=== PATIENT | male | born 1945 | race Caucasian/White ===

== ENCOUNTER 2016-09-27 21:25 | Emergency (ER) | payer OTHER ==
[~2016-09-27] VITALS: Ht 170.1 cm; Wt 94.3 kg
[~2016-09-27 21:25] MED LIST: ACYCLOVIR800 MG PO; BENADRYL25 M1 PO; BORON3 MG; CALCIUM CITRAT250 MG PO; CALCIUM200 MG; CIPRO500 MG PO; FLOMAX0.4 MG PO; GARLIC1 TAB; HAWTHORN PO; HYDROCODONE BIT1 T11 PO; KEFLEX500 MG PO; LISINOPRIL10 MG PO; MAGNESIUM500 MG; MULTIVITAMIN1 CTB PO; NATTOKINASE; NIACIN50 MG; PALMITATE-A5000 IU; PERCOCET 650 MG1 TA1 PO; POLICOSANOL10 MG PO; PRILOSEC OTC20 MG PO; Percocet 325 MG1 TAB PO; SAW PALMETTO6 X; SELENIUM; STRONTIUM; VICODIN 5/500 505 MG PO; VITAMIN B COMPL1 CAP PO; VITAMIN B610 MG PO; VITAMIN C1000 M2 PO; VITAMIN D2000 IU; [UNRECOGNIZED DRUG - OTHER]; [UNRECOGNIZED DRUG - OTHER] PO
[2016-09-27 21:42] VITALS: BP 187/151
[2016-09-27] MEDS ORDERED: CYCLOBENZAPRINE5 M3 PO (21:45)
== END 2016-09-28 00:08 | disposition home or self-care (01) ==
LOC: ED 21:25
DX: S16.1XXA Strain of muscle, fascia and tendon at neck level, initial encounter (principal); F17.200 Nicotine dependence, unspecified, uncomplicated; Z95.5 Presence of coronary angioplasty implant and graft; Z90.49 Acquired absence of other specified parts of digestive tract; I10 Essential (primary) hypertension; Z87.442 Personal history of urinary calculi; Z86.73 Personal history of transient ischemic attack (TIA), and cerebral infarction without residual deficits; Z88.6 Allergy status to analgesic agent; Z79.899 Other long term (current) drug therapy; W22.8XXA Striking against or struck by other objects, initial encounter; Y93.89 Activity, other specified; Y92.9 Unspecified place or not applicable; Y99.9 Unspecified external cause status

== ENCOUNTER 2016-10-28 15:29 | Inpatient (IN) | payer OTHER ==
[~2016-10-28] VITALS: Ht 170.2 cm; Wt 94.1 kg
[2016-10-28] VITALS (13 sets, daily range): BP systolic 139–220; BP diastolic 79–149
--- NOTE | ~2016-10-28 | ST ---
[place], [place] EXERCISE STRESS TEST REPORT NAME: CRISTOBAL RICHARDS UNIT #: [id number] ROOM: [facility] DOCTOR: JUS THRASHER,MARY BIRTHDATE: [birth year] DOS: 10/30/2016 REFERRING PHYSICIAN: Dr. Izaguirre. INDICATION: Elevated troponin. The patient underwent standard Richard protocol Lexiscan stress EKG. The patient's baseline EKG showed normal sinus rhythm with nonspecific ST-T wave changes. The patient's baseline heart rate is 82 with a blood pressure 144/80. The patient's peak heart was 100 with a blood pressure 158/84. The patient had no chest pain, no ischemic changes. The patient had no arrhythmias, some PVCs. SUMMARY OF FINDINGS: Unremarkable Lexiscan stress EKG. Please see separate report for perfusion scan results. MARY LUU MD CM:STRESS:EXERCISE STRESS TEST REPORT [id number] MARY LUU MD
[~2016-10-28 15:29] MED LIST changes: +CYCLOBENZAPRINE5 M3 PO
[2016-10-28 16:28] LABS: BASO # 0.1 10*3/uL (0.0-0.1); BASO % 0.8 % (0.0-1.0); EOS # 0.1 10*3/uL (0.0-0.4); EOS % 1.2 % (1.0-4.0); HEMATOCRIT 45.2 % (42.0-52.0); HEMOGLOBIN 15.8 g/dl (14.0-18.0); LYMPH # 1.4 10*3/uL (1.3-4.4); LYMPH % 21.9 % (27.0-41.0); MEAN CELL VOLUME 88.5 fl (80.0-94.0); MEAN CORPUSCULAR HGB 30.9 pg (27.0-31.0); MEAN PLATELET VOLUME 9.9 fl (9.6-12.3); MONO # 0.6 10*3/uL (0.1-1.0); MONO % 9.4 % (3.0-9.0); NEUT # 4.3 10*3/uL (2.3-7.9); NEUT % 66.2 % (47.0-73.0); PLATELET COUNT AUTOMATED 160 10*3/uL (130-400); RED BLOOD COUNT 5.11 10*6/uL (4.50-5.90); RED CELL DISTRI WIDTH 13.6 % (0-14.5); WHITE BLOOD COUNT 6.5 10*3/uL (4.8-10.8)
[2016-10-28 16:45] LABS: ALBUMIN 3.5 gm/dl (3.1-4.5); ALKALINE PHOSPHATASE 79 U/L (45-117); BILIRUBIN, TOTAL 0.6 mg/dl (0.2-1.0); BUN 13 mg/dl (7-24); CARBON DIOXIDE 30 mmol/L (21-32); CHLORIDE 104 mmol/L (98-107); EST GLOM FILT AFRICAN AMERICAN > 60 ml/min; GLUCOSE 91 mg/dL (65-99); POTASSIUM 3.8 mmol/L (3.5-5.1); SGOT/AST 22 IU/L (3-35); SGPT/ALT 38 U/L (12-78); SODIUM 142 mmol/L (136-145)
[2016-10-28 18:00] LABS: BILIRUBIN NEGATIVE (NEGATIVE); BLOOD TRACE-INTACT (NEGATIVE); CLARITY CLEAR (CLEAR); COLOR YELLOW (YELLOW); GLUCOSE NEGATIVE (NEGATIVE); KETONE NEGATIVE (NEGATIVE); LEUKO ESTERASE NEGATIVE (NEGATIVE); NITRITE NEGATIVE (NEGATIVE); PH 6.5 (5.0-9.0); PROTEIN NEGATIVE (NEGATIVE); SPECIFIC GRAVITY <= 1.005 (1.005-1.030); UROBILINOGEN 0.2 E.U./dl (0.2-1.0)
[2016-10-28 18:06] LABS: BACTERIA 4+; URINE REFLEX COMMENT YES (NO); WBC 0-2 wbc/hpf (0-5)
[2016-10-29] VITALS: BP 109/70
[2016-10-29 04:00] VITALS: BP 146/83
[2016-10-29 04:47] LABS: BASO # 0.1 10*3/uL (0.0-0.1); BASO % 0.6 % (0.0-1.0); EOS # 0.1 10*3/uL (0.0-0.4); EOS % 1.1 % (1.0-4.0); HEMATOCRIT 41.8 % (42.0-52.0); HEMOGLOBIN 14.7 g/dl (14.0-18.0); LYMPH # 1.5 10*3/uL (1.3-4.4); LYMPH % 18.4 % (27.0-41.0); MEAN CELL VOLUME 87.6 fl (80.0-94.0); MEAN CORPUSCULAR HGB 30.8 pg (27.0-31.0); MEAN CORPUSCULAR HGB CONC 35.2 g/dl (33.0-37.0); MEAN PLATELET VOLUME 10.2 fl (9.6-12.3); MONO # 0.8 10*3/uL (0.1-1.0); MONO % 9.2 % (3.0-9.0); NEUT # 5.9 10*3/uL (2.3-7.9); NEUT % 70.5 % (47.0-73.0); PLATELET COUNT AUTOMATED 148 10*3/uL (130-400); RED BLOOD COUNT 4.77 10*6/uL (4.50-5.90); RED CELL DISTRI WIDTH 13.9 % (0-14.5); WHITE BLOOD COUNT 8.4 10*3/uL (4.8-10.8)
[2016-10-29 04:59] LABS: PROTHROMBIN TIME 10.6 SECONDS (9.0-12.4)
[2016-10-29 05:01] LABS: BUN 12 mg/dl (7-24); CARBON DIOXIDE 26 mmol/L (21-32); CHLORIDE 106 mmol/L (98-107); EST GLOM FILT AFRICAN AMERICAN > 60 ml/min; GLUCOSE 97 mg/dL (65-99); POTASSIUM 3.2 mmol/L (3.5-5.1); SODIUM 142 mmol/L (136-145)
[2016-10-29 05:06] LABS: CHOLESTEROL 176 mg/dL (<200); FREE T4 1.13 ng/dl (0.76-1.46); HDL CHOLESTEROL 41 mg/dl (40-60); LDL CHOLESTEROL 114 mg/dL (9-159); TRIGLYCERIDES 104 mg/dl (<150); VLDL CHOLESTEROL 21 mg/dL (6-40)
[2016-10-29 05:47] LABS: MAGNESIUM 2.3 mg/dL (1.5-2.1); PHOSPHOROUS 3.9 mg/dL (2.5-4.9)
[2016-10-29 06:46] LABS: FOLIC ACID 12.59 ng/mL (>5.38); VITAMIN D, 25-HYDROXY 44.6 ng/mL (30-100)
[2016-10-29 08:00] VITALS: BP 144/97
[2016-10-29 12:00] VITALS: BP 158/110
[2016-10-29 16:00] VITALS: BP 164/94
[2016-10-29 20:05] VITALS: BP 166/93
[2016-10-30] VITALS: BP 125/62
[2016-10-30 04:00] VITALS: BP 139/88
[2016-10-30 05:58] LABS: BASO # 0.1 10*3/uL (0.0-0.1); BASO % 0.8 % (0.0-1.0); EOS # 0.1 10*3/uL (0.0-0.4); EOS % 1.1 % (1.0-4.0); HEMATOCRIT 41.6 % (42.0-52.0); HEMOGLOBIN 14.3 g/dl (14.0-18.0); LYMPH # 1.8 10*3/uL (1.3-4.4); LYMPH % 19.9 % (27.0-41.0); MEAN CELL VOLUME 89.8 fl (80.0-94.0); MEAN CORPUSCULAR HGB 30.9 pg (27.0-31.0); MEAN CORPUSCULAR HGB CONC 34.4 g/dl (33.0-37.0); MEAN PLATELET VOLUME 10.9 fl (9.6-12.3); MONO # 0.9 10*3/uL (0.1-1.0); MONO % 9.7 % (3.0-9.0); PLATELET COUNT AUTOMATED 158 10*3/uL (130-400); RED BLOOD COUNT 4.63 10*6/uL (4.50-5.90); WHITE BLOOD COUNT 8.9 10*3/uL (4.8-10.8)
[2016-10-30 06:32] LABS: BUN 15 mg/dl (7-24); CARBON DIOXIDE 26 mmol/L (21-32); CHLORIDE 104 mmol/L (98-107); EST GLOM FILT AFRICAN AMERICAN > 60 ml/min; GLUCOSE 89 mg/dL (65-99); POTASSIUM 3.7 mmol/L (3.5-5.1); SODIUM 138 mmol/L (136-145)
[2016-10-30 08:00] VITALS: BP 139/94
[2016-10-30 12:00] VITALS: BP 144/116
[2016-10-30] MEDS ORDERED: IMDUR SA30 MG PO (14:36)
[2016-10-30] MEDS ORDERED: ASPIRIN ADULT L81 M2 PO (14:36)
[2016-10-30] MEDS ORDERED: TOPROL XL50 M1 PO (14:36)
[2016-10-30] MEDS ORDERED: ATORVASTATIN CA20 M1 PO (14:36)
[2016-10-30] MEDS ORDERED: LOSARTAN POTAS100 M1 PO (14:36)
[2016-10-30 16:00] VITALS: BP 156/104
== END 2016-10-30 16:52 | disposition home or self-care (01) | DRG 304 ==
LOC: ED 15:29 → EDHOLD 17:34 → ICCU 17:34
PROVIDERS: Emergency Medicine; Family Medicine; Internal Medicine; Internal Medicine Hospice and Palliative Medicine
PROC: 4A02XM4 Measurement of Cardiac Total Activity, External Approach (ICD-10-PCS; principal; 2016-10-30)
DX: I16.1 Hypertensive emergency (principal); G93.41 Metabolic encephalopathy; I50.32 Chronic diastolic (congestive) heart failure; I24.8 Other forms of acute ischemic heart disease; I69.351 Hemiplegia and hemiparesis following cerebral infarction affecting right dominant side; I69.328 Other speech and language deficits following cerebral infarction; E87.6 Hypokalemia; K59.00 Constipation, unspecified; N39.3 Stress incontinence (female) (male); K21.9 Gastro-esophageal reflux disease without esophagitis; M81.0 Age-related osteoporosis without current pathological fracture; I16.0 Hypertensive urgency; F17.200 Nicotine dependence, unspecified, uncomplicated; I25.10 Atherosclerotic heart disease of native coronary artery without angina pectoris; Z88.8 Allergy status to other drugs, medicaments and biological substances; Z88.5 Allergy status to narcotic agent; I25.2 Old myocardial infarction; Z87.442 Personal history of urinary calculi; Z90.49 Acquired absence of other specified parts of digestive tract; Z95.5 Presence of coronary angioplasty implant and graft; Z98.49 Cataract extraction status, unspecified eye; Z82.3 Family history of stroke; Z82.49 Family history of ischemic heart disease and other diseases of the circulatory system; I11.0 Hypertensive heart disease with heart failure

== ENCOUNTER 2019-11-06 05:07 | Emergency (ER) | payer OTHER ==
[~2019-11-06] VITALS: Ht 170.1 cm; Wt 87.1 kg
[~2019-11-06 05:07] MED LIST changes: +ASPIRIN ADULT L81 M2 PO; +ATORVASTATIN CA20 M1 PO; +IMDUR SA30 MG PO; +LOSARTAN POTAS100 M1 PO; +TOPROL XL50 M1 PO
[2019-11-06 05:32] LABS: COLOR YELLOW (YELLOW)
[2019-11-06 05:33] LABS: BILIRUBIN NEGATIVE (NEGATIVE); CLARITY SL CLOUDY (CLEAR); GLUCOSE NEGATIVE (NEGATIVE); KETONE NEGATIVE (NEGATIVE)
[2019-11-06 05:34] LABS: BLOOD 3+ (NEGATIVE); LEUKO ESTERASE 3+ (NEGATIVE); NITRITE POSITIVE (NEGATIVE); UROBILINOGEN 0.2 E.U./dl (0.2-1.0)
[2019-11-06 05:42] LABS: RBC 41-50 rbc/hpf (0-2); WBC TNTC wbc/hpf (0-5)
[2019-11-06 05:43] LABS: BACTERIA 4+
[2019-11-06 05:56] LABS: BASO % 0.3 % (0.0-1.0); EOS # 0.1 10*3/uL (0.0-0.4); EOS % 0.7 % (1.0-4.0); HEMATOCRIT 40.2 % (42.0-52.0); LYMPH # 0.4 10*3/uL (1.3-4.4); LYMPH % 3.3 % (27.0-41.0); MEAN CELL VOLUME 93.1 fl (80.0-94.0); MEAN CORPUSCULAR HGB 30.8 pg (27.0-31.0); MEAN CORPUSCULAR HGB CONC 33.1 g/dl (33.0-37.0); MEAN PLATELET VOLUME 10.8 fl (9.6-12.3); MONO # 0.6 10*3/uL (0.1-1.0); MONO % 5.2 % (3.0-9.0); NEUT # 9.4 10*3/uL (2.3-7.9); NEUT % 89.8 % (47.0-73.0); PLATELET COUNT AUTOMATED 229 10*3/uL (130-400); RED BLOOD COUNT 4.32 10*6/uL (4.50-5.90); RED CELL DISTRI WIDTH 13.9 % (0-14.5); WHITE BLOOD COUNT 10.5 10*3/uL (4.8-10.8)
[2019-11-06 05:59] LABS: ALBUMIN 2.9 gm/dl (3.1-4.5); ALKALINE PHOSPHATASE 119 U/L (45-117); BUN 28 mg/dl (7-24); CHLORIDE 109 mmol/L (98-107); CREATININE 1.28 mg/dL (0.70-1.30); POTASSIUM 3.8 mmol/L (3.5-5.1); SGOT/AST 27 IU/L (3-35); SGPT/ALT 51 U/L (12-78); SODIUM 139 mmol/L (136-145); TOTAL PROTEIN 7.3 gm/dL (6.4-8.2)
[2019-11-06 06:00] LABS: TROPONIN I < 0.015 ng/ml (<0.045)
[2019-11-06 06:15] LABS: ACT PARTIAL THROMBO TIME 25.3 SECONDS (20.0-32.1); INTERNATIONAL NORM RATIO 1.1 (2.0-3.5)
[2019-11-06] MEDS ORDERED: CIPRO500 MG PO (08:51)
[2019-11-06 09:25] VITALS: BP 121/80
== END 2019-11-06 09:00 | disposition home or self-care (01) ==
LOC: ED 05:07
PROVIDERS: Emergency Medicine Emergency Medical Services
DX: N39.0 Urinary tract infection, site not specified (principal)

== ENCOUNTER 2019-11-08 07:52 | Inpatient (IN) | payer OTHER ==
[~2019-11-08] VITALS: Ht 170.1 cm; Wt 87.1 kg
[2019-11-08 07:56] VITALS: BP 131/81
[2019-11-08 08:21] LABS: BASO % 0.4 % (0.0-1.0); EOS # 0.2 10*3/uL (0.0-0.4); EOS % 2.9 % (1.0-4.0); HEMATOCRIT 33.7 % (42.0-52.0); LYMPH % 12.1 % (27.0-41.0); MEAN CELL VOLUME 94.7 fl (80.0-94.0); MEAN CORPUSCULAR HGB 30.6 pg (27.0-31.0); MEAN CORPUSCULAR HGB CONC 32.3 g/dl (33.0-37.0); MEAN PLATELET VOLUME 10.4 fl (9.6-12.3); MONO # 0.9 10*3/uL (0.1-1.0); MONO % 10.6 % (3.0-9.0); NEUT # 5.9 10*3/uL (2.3-7.9); NEUT % 72.2 % (47.0-73.0); PLATELET COUNT AUTOMATED 168 10*3/uL (130-400); RED BLOOD COUNT 3.56 10*6/uL (4.50-5.90); RED CELL DISTRI WIDTH 14.2 % (0-14.5); WHITE BLOOD COUNT 8.2 10*3/uL (4.8-10.8)
[2019-11-08 08:36] LABS: ALBUMIN 2.3 gm/dl (3.1-4.5); ALKALINE PHOSPHATASE 96 U/L (45-117); BUN 22 mg/dl (7-24); CHLORIDE 108 mmol/L (98-107); CREATININE 1.06 mg/dL (0.70-1.30); LIPASE 273 U/L (73-393); POTASSIUM 3.6 mmol/L (3.5-5.1); SGOT/AST 15 IU/L (3-35); SGPT/ALT 34 U/L (12-78); SODIUM 139 mmol/L (136-145); TOTAL PROTEIN 6.1 gm/dL (6.4-8.2)
[2019-11-08 08:37] LABS: TROPONIN I < 0.015 ng/ml (<0.045)
[2019-11-08 08:40] LABS: BILIRUBIN NEGATIVE (NEGATIVE); CLARITY CLEAR (CLEAR); COLOR YELLOW (YELLOW); GLUCOSE NEGATIVE (NEGATIVE); KETONE NEGATIVE (NEGATIVE)
[2019-11-08 08:41] LABS: BLOOD 1+ (NEGATIVE); LEUKO ESTERASE TRACE (NEGATIVE); MUCOUS TRACE; NITRITE NEGATIVE (NEGATIVE); UROBILINOGEN 0.2 E.U./dl (0.2-1.0)
[2019-11-08 08:44] LABS: ACT PARTIAL THROMBO TIME 26.9 SECONDS (20.0-32.1); INTERNATIONAL NORM RATIO 1.1 (2.0-3.5)
[2019-11-08 09:07] VITALS: BP 118/82
[2019-11-08 10:27] VITALS: BP 142/88
--- NOTE | 2019-11-08 10:27 | NUR ---
VENUS PALMA IN TO SEE PATIENT
--- NOTE | 2019-11-08 10:27 | NUR ---
A 73, admitted to , under the services of CARLOS Beltrán DO with a diagnosis of UTI. Chief complaint is FATIGUE. Patient arrived via bed from ER. Monitor applied. Initial assessment completed. Vital signs taken and recorded. CARLOS BELTRÁN DO notified of admission to the unit. Orders received. See assessment for past medical history, medications and allergies. Patient and/or family oriented to unit. [facility]. Clothing/patient valuable form completed. SUDHIR HARRIS
--- NOTE | 2019-11-08 11:40 | NUR ---
CALLED [facility] FOR MED LIST, THEY WILL FAX OVER
--- NOTE | 2019-11-08 11:46 | NUR ---
PT ON THE PHONE GETTING UPDATE ON PATIENT
--- NOTE | 2019-11-08 11:49 | NUR ---
CALLED [facility] TO LET HER KNOW PT MED LIST IS UP TO DATE
[2019-11-08 12:00] VITALS: BP 137/78
--- NOTE | 2019-11-08 13:28 | NUR ---
SPOKE TO DANICA DUNBAR ON THE PHONE, SHE STATES ADD SPEECH CONSULT AND DIET THICKENED LIQUIDS
--- NOTE | 2019-11-08 14:43 | NUR ---
PT IS ANXIOUS AND YELLING "I WANT A TOOTHPICK, IF YOU DONT HAVE A TOOTHPICK I AM GOING TO LEAVE, NO ONE HERE MONITORS ME HERE I AM IN BETTER CARE AT HOME". CALLED [facility] AND SHE WILL PUT AN ORDER OF NYSTATIN IN PER PT REQUEST
--- NOTE | 2019-11-08 14:58 | NUR ---
PER [facility]. PATIENT IS ACTIVE WITH RNS/PT.
--- NOTE | 2019-11-08 15:13 | NUR ---
SET UP SUCTION FOR PATIENT SO HE CAN USE IT HE NEEDS. WILL CONTINUE TO MONITOR
--- NOTE | 2019-11-08 15:54 | NUR ---
IN TO CHECK ON PATIENT AT THIS TIME, HE IS MORE CALM AT THIS TIME AND IS RESTING. CALL LIGHT WITHIN PT, WILL CONTINUE TO MONITOR
[2019-11-08 16:00] VITALS: BP 140/80
--- NOTE | 2019-11-08 18:04 | NUR ---
PT INFORMED OF HONEY THICKENED LIQUIDS AND IS REFUSING THE ORDER, STATES "I CAN EAT AND DRINK WHATEVER I WANT, I DONT WANT IT THICKENED". PT MADE AWARE OF ALL POSSIBLE SIDE EFFECTS AND UP EDUCATED ON THICKNER. DOCTOR MADE AWARE OF PT REFUSING THICKENING ADDITIVE
--- NOTE | 2019-11-08 18:07 | NUR ---
DR ROYAL MADE AWARE OF PT REFUSING THICKENING AGENT
[2019-11-08 20:00] VITALS: BP 114/79
--- NOTE | 2019-11-08 21:34 | NUR ---
PT REFUSING TO TAKE EVENING MEDS OR ALLOW NYSTATIN TO BE APPLIED. PT STATES "YOU'RE TRYING TO DRIVE ME CRAZY, YOU'RE BLACK MAILING ME. I NEED OUT OF THIS HOSPITAL." RN ASSURED PATIENT THAT THERE WAS NO FORM OF BLACKMAIL GOING ON AND RN IS HERE TO HELP PATIENT. PT HOLDS UP FIST AT RN AND SAYS "OOOOH." RN ASKS PT KINDLY NOT TO THREATEN HER. PT STATES "OH BOY I WILL THREATEN YOU."
--- NOTE | 2019-11-08 21:52 | NUR ---
PT'S CALLED REGARDING NEW AGITATION. PT DEMANDING COME TO TAKE HIM HOME. PHONE CALL TRANSFERRED INTO PATIENT'S ROOM SO HE CAN TALK TO . CALLED REGARDING AGITATION AND PT'S REQUEST FOR PAIN MEDS. NEW ORDERS TO FOLLOW.
--- NOTE | 2019-11-08 22:22 | NUR ---
PT IS MUCH CALMER AFTER TALKING TO ON PHONE. PT NOW RECEPTIVE TO HEAR WHAT STAFF HAS TO SAY. PT ASSISTED UP TO BEDSIDE COMMODE WITH ASSIST X3. PATIENT IS A MAX ASSIST. PT'S STATES HE GETS HIMSELF IN AND OUT OF HIS WHEELCHAIR AT HOME, BUT NEEDS SOME ASSISTANCE. PATIENT IS VERY WEAK AT THIS TIME AND MOBILITY IS VERY LIMITED. PATIENT ASSISTED BACK INTO BED. PT UNABLE TO HAVE BM ON BSC. MARTINO REMAINS INTACT. IV ATIVAN AND IV MORPHINE ADMINISTERED PER ORDER FOR AGITATION & "LUNG PAIN" RATED 10/10. PATIENT ENCOURAGED TO COUGH/DEEP BREATHE AND EXPECTORATE ANY SPUTUM HE BRINGS UP. VERBALIZES UNDERSTANDING. WILL MONITOR. CALL LIGHT IN REACH. BED ALARM INTACT.
--- NOTE | 2019-11-08 23:15 | NUR ---
EARLIER MEDICATIONS APPEAR EFFECTIVE. PT ASLEEP IN BED. RESPIRATIONS EASY. NO S/S OF DISTRESS NOTED.
[2019-11-09] VITALS: BP 120/79
--- NOTE | 2019-11-09 00:13 | NUR ---
PT REMAINS ASLEEP IN BED. HOB ELEVATED. NO S/S OF DISTRESS NOTED. WILL MONITOR. SUCTION LEFT AT BEDSIDE PER PT'S EARLIER REQUEST. BED LOCKED IN LOW POSITION. BED ALARM INTACT. CALL LLIGHT IN REACH.
[2019-11-09 06:41] LABS: BASO # 0.1 10*3/uL (0.0-0.1); BASO % 0.9 % (0.0-1.0); EOS # 0.2 10*3/uL (0.0-0.4); EOS % 2.7 % (1.0-4.0); HEMATOCRIT 34.2 % (42.0-52.0); LYMPH # 1.2 10*3/uL (1.3-4.4); LYMPH % 20.6 % (27.0-41.0); MEAN CELL VOLUME 92.4 fl (80.0-94.0); MEAN CORPUSCULAR HGB 30.8 pg (27.0-31.0); MEAN CORPUSCULAR HGB CONC 33.3 g/dl (33.0-37.0); MEAN PLATELET VOLUME 11.4 fl (9.6-12.3); MONO # 0.6 10*3/uL (0.1-1.0); MONO % 10.3 % (3.0-9.0); NEUT # 3.7 10*3/uL (2.3-7.9); NEUT % 63.6 % (47.0-73.0); PLATELET COUNT AUTOMATED 194 10*3/uL (130-400); RED CELL DISTRI WIDTH 14.1 % (0-14.5); WHITE BLOOD COUNT 5.8 10*3/uL (4.8-10.8)
[2019-11-09 07:21] LABS: ALBUMIN 2.5 gm/dl (3.1-4.5); ALKALINE PHOSPHATASE 102 U/L (45-117); BUN 21 mg/dl (7-24); CHLORIDE 106 mmol/L (98-107); CHOLESTEROL 90 mg/dL (<200); CREATININE 1.23 mg/dL (0.70-1.30); FREE T4 1.45 ng/dl (0.76-1.46); HDL CHOLESTEROL 20 mg/dl (40-60); LDL CHOLESTEROL 53 mg/dL (9-159); SGOT/AST 18 IU/L (3-35); SGPT/ALT 32 U/L (12-78); SODIUM 140 mmol/L (136-145); TOTAL PROTEIN 6.4 gm/dL (6.4-8.2); TRIGLYCERIDES 84 mg/dl (<150); VLDL CHOLESTEROL 17 mg/dL (6-40)
[2019-11-09 08:00] VITALS: BP 98/75
--- NOTE | 2019-11-09 08:33 | NUR ---
SPEECH PATHOLOGY Orders for evaluation received and chart review completed. Assessment attempted this am. Patient was asleep but aroused when his name was called. He opened his eyes, looked at clinician, then went back to sleep. Will attempt again at a later time. LIANA MCGINNIS MSCCC-CIGARETTE PAPER TESTER
[2019-11-09 08:50] LABS: VITAMIN D, 25-HYDROXY 34.3 ng/mL (30-100)
--- NOTE | 2019-11-09 09:00 | NUR ---
Oral And Maxillofacial Surgeon in to talk to patient. Patient states lives at home with . There are no steps in the home. Physician: amador samuels [facility] Patient's level of ADLs: MAX ASSIST Patient has working utilities: all working DME: hospital bed, shower chair, wheelchair, walker, cane Follow-up physician's appointment after d/c: will be made by hospitalist nurse director upon discharg Does patient want to access PORTAL?: no Discharge plan discussed with patient's , she stated patient lives at home with her, he requires assistance with adls and stated he hasn't walked for a few months, he has a hospital bed, shower chair, wheelchair, walker and cane, discussed with her a discharge plan, she stated patient currently has [facility] set up by the [place]. she stated she would like patient to return home if he was able to. she stated if he needed a short term skilled she would think about a facility, case management will follow and talk with as needed for home needs. MOHINDER GO
--- NOTE | 2019-11-09 09:52 | NUR ---
PT SITTING UP IN BED EATING BREAKFAST. MOIST COUGH NOTED BUT PT STATES HE IS UNABLE TO COUGH ANYTHING UP. PT ANSWERS QUESTIONS APPROPRIATELY AND IS NONTHREATENING. WILL CONTINUE TO MONITOR.
--- NOTE | 2019-11-09 10:57 | NUR ---
VENUS PALMA NP INFORMED THAT THE PATIENT WOULD LIKE TO SEE HER.
--- NOTE | 2019-11-09 11:10 | NUR ---
Occupational Therapy evaluation completed on FIVE with full evaluation to follow. Recommend occupational therapy per plan of care and SNF upon discharge. Thank you for this referral. Svitlana Vargas OTR/L
--- NOTE | 2019-11-09 11:39 | NUR ---
SPEECH PATHOLOGY Clinical swallowing evaluation completed. Patient was admitted with UTI, urinary retention and pneumonitis. Further history includes CVA, dysphagia, triple bipass. Patient is from home. He is reportedly ordered thick liquids however admitted that he does not comply with drinking thick liquids at home due to dislike of the taste. Patient stated that he does cough with thin liquids. He also reported having "lots of phlegm." He is ordered a cardiac diet and honey thick liquids. For assessment he was alert and cooperative. Oral exam revealed impaired strength and ROM with lingual/labial and buccal skills. Patient was able to volitionally swallow but unable to volitionally cough. He was assessed with a variety of solid foods as well as liquids at thin, nectar and honey consistencies. Patient expressed dislike of thick liquids but was agreeable to clinician thickening the liquid after explanation as to reasoning for thickening. Patient was assisted with set up and some feeding but eventually began to feed himself. He tolerated food items with a timely swallow and no cough, wet vocal quality or residue. With thin and nectar thick liquids, coughing and throat clearing were displayed. Honey thick liquids were administered with no immediate cough or throat clearing however congestion was displayed throughout the meal. Recommend a MBS to further assess the pharyngeal phase of the swallow and determine most appropriate diet consistency. Results and fady. were shared with patient and his nurse and they verbalized understanding. Refer to report in [place] for further information. Thank you for this referral. LIANA MCGINNIS MSCCC-ODD JOBS DAY WORKER
--- NOTE | 2019-11-09 11:58 | NUR ---
case management contacted [facility] regarding patient admitting to this facility, spoke to Leny from transfer center, she documented patient's information and asked that clinicals be faxed, clinicals were faxed per case management
[2019-11-09 12:00] VITALS: BP 119/95
--- NOTE | 2019-11-09 13:10 | NUR ---
PHYSICAL THERAPY Physical Therapy evaluation completed on 5th floor with full evaluation to follow. Recommend physical therapy per plan of care and SNF upon discharge. Thank you for this referral. Shruthi Marion PT
--- NOTE | 2019-11-09 13:54 | NUR ---
case management faxed patient's information to [facility] to resume services when patient is discharged
--- NOTE | 2019-11-09 14:50 | NUR ---
PT MEDICATED WITH PRN MORPHINE FOR C/O BACK AND "LUNG PAIN". PT RATES 8/10 AND APPEARS RESTLESS IN BED. WILL CONTINUE TO MONITOR.
--- NOTE | 2019-11-09 15:45 | NUR ---
PRN MORPHINE EFFECTIVE PER PT.
[2019-11-09 16:00] VITALS: BP 109/78
[2019-11-09 20:00] VITALS: BP 142/87
--- NOTE | 2019-11-09 20:25 | NUR ---
IV MORPHINE GIVEN FOR "LUNG PAIN" RATED 10/10. WILL MONITOR EFFECTIVENESS.
--- NOTE | 2019-11-09 20:55 | NUR ---
WHEN RN INTO ROOM TO GIVE SUPPOSITORY AND PT IS ASLEEP. WILL ADMINISTER WHEN PT AWAKE.
--- NOTE | 2019-11-09 21:15 | NUR ---
EARLIER MEDICATION APPEARS EFFECTIVE. PT ASLEEP IN BED. NO S/S OF DISTRESS NOTED. WILL MONITOR. CALL LIGHT IN REACH.
--- NOTE | 2019-11-10 00:33 | NUR ---
PO NORCO ADMINISTERED FOR C/O GENERALIZED ALL OVER PAIN RATED 10/10. WILL MONITOR EFFECTIVENESS. CALL LIGHT IN REACH.
--- NOTE | 2019-11-10 01:30 | NUR ---
EARLIER MEDICATION APPEARS EFFECTIVE. PT ASLEEP IN BED. NO S/S OF DISTRESS NOTED. WILL MONITOR. CALL LIGHT IN REACH. BED ALARM INTACT.
--- NOTE | 2019-11-10 02:19 | NUR ---
PT STATES EARLIER NORCO "DIDN'T HELP ONE BIT" THOUGH PT JUST WOKE UP. IV MORPHINE ADMINISTERED FOR BACK/"LUNG" PAIN RATED 10/10. WILL MONITOR.
--- NOTE | 2019-11-10 03:00 | NUR ---
PT ASLEEP IN BED. EARLIER MORPHINE EFFECTIVE.
[2019-11-10 08:00] VITALS: BP 117/88
--- NOTE | 2019-11-10 08:22 | NUR ---
case management received a call from Edda senior project manager from [facility] regarding patient's discharge plan, Edda stated patient was 100% service connected and is [facility], social sciences department chair will contact [place] social sciences department chair to obtain list of [facility] facilities
--- NOTE | 2019-11-10 09:00 | NUR ---
PHYSICAL THERAPY Patient seen this am 1:1 for therapy visit and and was supine in bed with Nurse present upon therapist arrival. Patient identified by name / and was joined by OT video production assistant for observation this session. Patient reports no new c/o's and presents with R side deficits from prior CVA. Patient also with use of R foot AFO, needing therapist assist for Don/Doff, Patient transfers supine to sit EOB with MOD A x 2, tolerating several minutes static EOB sit, SBA, demonstrating Fair+ seated balance and upright posture with no leaning. Patient completed sit to stand transfer, PLATE GRAINER APPRENTICE/MOD, performing SPT to w/c, demonstrating 2-3 steps with v/c for safety. Patient was happy with his perfomrance and remained in w/c for transport to medical testing. Will continue per POC as tolerated, total treatment time 13 minutes. Pardeep Rios, RHINOLOGIST
--- NOTE | 2019-11-10 09:25 | NUR ---
OT NOTE Pt was seen this A.M. 1:1 for 13 minute OT session. Upon arrival pt was supine in bed. Pt identified by name and and had complaints of feeling nauseated. While supine in bed pt's R AFO was donned. Pt transferred supine to sit EOB with modA X 2. While sitting EOB pt donned gown with Bertha while dressing R side first. While sitting EOB pt presented with F+ static sitting balance. Transport arrived to take pt for medical test. Pt was left under transport supervision. Continue with rec D/C plan to SNF. GRABIEL Khan/Yocasta
--- NOTE | 2019-11-10 09:52 | NUR ---
SPEECH PATHOLOGY Modified barium swallow completed as per orders. Patient was alert and cooperative. He was assessed with puree, solid food and liquids at honey, nectar and thin consistencies, via cup. Results revealed a mild pharyngeal dysphagia. His swallow triggered at the level of the valleculae but once triggered, there was no penetration or aspiration with puree, solid, honey or nectar thick liquid. Patient did display transient penetration with thin liquids. Recommend regular diet and nectar thick liquids. Recommend follow up therapy to ensure safe tolerance of diet upgrade. Results and fady. were shared with patient and his nurse and they verbalized understanding. Dictated report to follow. Thank you for this referral. LIANA MCGINNIS MSCCC-MANAGING MEMBER
--- NOTE | 2019-11-10 11:03 | NUR ---
EQUAL OPPORTUNITY OFFICER FAXED DEMOGRAPHICS TO [facility].
[2019-11-10 12:00] VITALS: BP 148/76
--- NOTE | 2019-11-10 13:36 | NUR ---
OT NOTE Attempted to see pt this P.M. for second OT session and upon arrival pt was supine in bed with lunch tray at bedside. Pt was very angry at this time reporting that his liquids were "not thin liquids like they are suppose to be." Educated pt that per speech pt is to be nectar thick liquids, pt stated "that is all wrong, I am perfect." Unable to redirect pt's attention to task and pt continued to decline therapy at this time. Will check back at a later time/date and continue with POC as able. GRABIEL Khan/Yocasta
--- NOTE | 2019-11-10 13:52 | NUR ---
WELLNESS DIRECTOR LEFT MESSAGE FOR [facility] JUNIOR AUTOMATION ENGINEER RAJEEV SEEKING ASSISTANCE WITH [facility]WORK [facility]. WILL AWAIT RETURN CALL.
--- NOTE | 2019-11-10 13:55 | NUR ---
PT REFUSES THICKENER TO BE PUT IN MIKE FRANCISCO.
--- NOTE | 2019-11-10 14:55 | NUR ---
AGRICULTURE SPECIALIST REACHED OUT TO PATIENTS . PATIENT STATED THAT SHE WANTS A REFERRAL SENT TO [facility]. AGRICULTURE SPECIALIST ATTEMPTED TO EXPLAIN THE PATIENT WOULD LIKELY NOT QUALIFY AND ASKED FOR A SECOND FACILITY TO BE REFERRED AND SHE REFUSED TO GIVE ONE. AGRICULTURE SPECIALIST EXPLAINED THE [facility] FACILITIES AND EXPLAINED THE PATIENT COULD GO ANYWHERE UNDER HIS MEDICARE. SHE STILL STATED SHE WANTED A REFERRAL FAXED TO [facility]. AGRICULTURE SPECIALIST FAXED REFERRAL TO [facility].
--- NOTE | 2019-11-10 15:08 | NUR ---
SPEECH PATHOLOGY Patient was seen this pm for education and further explanation regarding results and fady. from this morning's MBS. Patient had reportedly stated that he was told that he no longer required thick liquids and was refusing to allow staff to thicken his liquids, with coughing displayed during his lunch. When patient was approached by HOME DELIVERY DRIVER this afternoon he was calm and cooperative and stated that he was coughing because the fruit was too hard and he could not chew it. Clinician brought up MBS and recommendation for nectar thick liquid, which was an upgrade from honey thick liquid that he had been previously receiving. Patient appeared to recall and understand this recommendation, though he stated he did not like it. Reasoning for thick liquids and their purpose was explained. He verbalized understanding. Patient stated that he was hungry since he did not eat his lunch. Clinician reviewed menu and discussed appropriate choices due to cardiac diet. Food was ordered. Patient also stated that he wanted to sit up in shantanu chair therefore help was requested to get patient into chair. Diet recommendation was shared with patient's nurse and aide and they were aware. Patient was pleasant throughout this encounter. Continue therapy plan. LIANA MCGINNIS MSCCC-HOME DELIVERY DRIVER
--- NOTE | 2019-11-10 15:47 | NUR ---
CHIMNEY MECHANIC RECEIVED CALL BACK FROM PATIENTS SHE STATED SHE WOULD LIKE REHAB SUITES A BACK UP.
[2019-11-10 16:00] VITALS: BP 121/86
--- NOTE | 2019-11-10 19:49 | NUR ---
IV MORPHINE GIVEN FOR BACK PAIN RATED 10/10. WILL MONITOR EFFECTIVENESS.
[2019-11-10 20:00] VITALS: BP 154/81
--- NOTE | 2019-11-10 20:30 | NUR ---
NOTIFIED OF PT'S REQUEST FOR STOOL SOFTENER. NEW ORDERS TO FOLLOW.
--- NOTE | 2019-11-10 20:30 | NUR ---
EARLIER MEDICATION EFFECTIVE PER PT.
--- NOTE | 2019-11-11 02:12 | NUR ---
NOTIFIED OF PT'S REQUEST FOR STOOL SOFTENER. NEW ORDERS TO FOLLOW.
--- NOTE | 2019-11-11 03:00 | NUR ---
PT WANTS TO WAIT UNTIL MORNING FOR SUPPOSITORY.
--- NOTE | 2019-11-11 04:11 | NUR ---
RECTAL DULCOLAX SUPPOSITORY ADMINISTERED PER ONE TIME ORDER. NEW BED LINENS/BRIEF PROVIDED PER REQUEST. PATIENT PULLED UP AND REPOSITIONED IN BED FOR COMFORT. WILL MONITOR. CALL LIGHT IN REACH.
--- NOTE | 2019-11-11 06:15 | NUR ---
EARLIER DULCOLAX EFFECTIVE. PT HAD LARGE BM PER AIDE.
--- NOTE | 2019-11-11 07:30 | NUR ---
TOOK OVER CARE OF PT. PT RESTING IN BED. RESPIRATIONS UNLABORED. NO S/S OF DISTRESS NOTED. CALL LIGHT IN REACH.
--- NOTE | 2019-11-11 07:58 | NUR ---
ELECTRICAL TESTER received call yesterday evening after hours from [facility]. Patient does not meet LTAC criteria. before school babysitter faxed complete referral to [facility] for review.
[2019-11-11 08:00] VITALS: BP 127/83
--- NOTE | 2019-11-11 09:50 | NUR ---
BANK COMPLIANCE OFFICER RECEIVED CALL FROM [place] MEDICAL RECORDS SUPERVISOR WHO JUST SPOKE WITH THE PATIENTS . [place] SOCIAL WORK STATED THE WAS STILL UNDECIDED ABOUT SNF PLACEMENT AND WAS WANTING TO LEAVE IT UP TO THE PATIENT. PER [place] MEDICAL RECORDS SUPERVISOR SHE PROVIDED AN ADDITIONAL [place] CONTRACTED SNF [facility]. BANK COMPLIANCE OFFICER REACHED OUT TO THE PATIENTS AND HAD APPROX A 35-40 CONVERSTATION. ABOUT HOME WITH HOME HEALTH VS SNF. SHE STATED AGAIN THAT SHE WOULD LEAVE THE DECISION UP TO THE PATIENT. SHE STATED THAT IT IS JUST HER AT HOME AND THE PATIENT HAS BECOME BED BOUND. SHE STATED THAT THE PATIENT WAS WALKING WITH A CAN IN OCTOBER AND GETTING AROUND JUST FINE. BANK COMPLIANCE OFFICER DID EXPLAIN TO THE PATIENTS THAT [facility] DENIED THE PATIENT. BANK COMPLIANCE OFFICER EXPLIANED THE PATIENT DID NOT MEET CRITERIA FOR ADMISSION. PATIENTS UNDERSTOOD. THE PATIENTS STATED THAT THEY HAVE BEEN FOR 53 YEARS AND SHE FEELS THAT THE PATIENT WILL JUST WANT TO RETURN HOME. THE PATIENTS WAS VERY TEARFUL/UPSET THROUGHOUT THE CONVERSATION. THE PATIENT EXPRESSED THAT SHE WOULD LIKE TO SEE HIM GET MORE INTENSE THERAPY HE HAS [facility]. THE PATIENTS IS VERY UNHAPPY WITH [facility]. PATIENT STATED THEY DO NOT WORK WITH THE PATIENT LIKE THEY SHOULD. PER , THEY ONLY DO ABOUT 15-20 MINUTES OF THERAPY WITH THE PATIENT. THE STATED THEY "APPRAISE HIM" AND "ASSESS HIM" THEN LEAVE. SHE ALSO STATED THAT THE RN THAT CAME OUT TO THE HOME WAS UNAWARE THAT THE PATIENT HAD A MARTINO IN PLACE AND DID NOT KNOW WHY IT WAS THERE. SHE ALSO STATED THAT THE HOME HEALTH WORKERS WOULD NOT ASSIST HER TO HELP GET THE PATIENT INTO A WHEEL CHAIR. THE STATED THAT IF THE PATIENT WERE TO CHOOSE SNF SHE WANTS HIM TO GO TO A [place] CONTRACT[place] FACILITY AND NOT ONE UNDER HIS MEDICARE. [facility], THE PATIENT IS SUPPOSED TO START WITH [facility] ON 11/17/2019. [facility] WILL BE IN FOR 16 HOURS A WEEK ONCE THEY START. PATIENT STATED THEY WERE SAVING FUNDS FOR HOME REPAIRS, AND NOW THE FUNDS HAVE GONE TO MEDICAL BILLS. BANK COMPLIANCE OFFICER ATTEMPTED TO GIVE HER INFORMATION ON SENIOR SERVICES AND COMMUNITY ACTION. THE PATIENT LAUGHED AND STATED "THOSE AGENCIES ARE USELESS". PATIENTS ASKED WHEN THE PATIENT WAS EXPECTED TO BE DISCHARGED. BANK COMPLIANCE OFFICER EXPLAINED THAT IF THE PATIENT IS NOT WANTING SNF PLACEMENT PER THE NOTES IT LOOKS LIKE IT COULD POSSIBLY BE SOON IF NOT TODAY. SHE STATED SHE WAS UNSURE HOW SHE WOULD GET HIM INTO THE HOME SINCE HE IS NOT WALKING. BANK COMPLIANCE OFFICER EXPLAINED WE COULD ASSIST TO GET HIM INTO THEIR CAR. BANK COMPLIANCE OFFICER EXPLAINED ONCE SHE GOT HOME, SHE COULD CONTACT THE LOCAL FIRE DEPARTMENT FOR A LIFE ASSIST. BANK COMPLIANCE OFFICER WILL MAKE RN CASE MANGER AWARE OF THE CONVERSTATION. IF PATIENT WOULD BE AGREEABLE TO SNF A REFERRAL WOULD HAVE TO GO THROUGH THE [facility] PER THE VA MEDICAL RECORDS SUPERVISOR (P:[phone] OR [phone]). BANK COMPLIANCE OFFICER WILL ALSO NOTIFY PAVEL ORTIZ OF THE CONCERNS THE PATIENTS HAS ABOUT THE CARE THE PATIENT HAS BEEN RECEIVING AT HOME.
--- NOTE | 2019-11-11 10:08 | NUR ---
PHYSICAL THERAPY PT SUPINE IN BED WITH BED ALARM ON UPON ARRIVAL. PT IDENTIFIED BY NAME AND . PT AGREED TO ALL PT TREATMENT THIS VISIT. PT PERFORMED SUPINE TO SIT WITH MODa X1 WITH VC'S TO HELP WITH PULLING ON BED RAIL. PT PERFORMED SEATED BALANCE ON EOB WITH MIN/MODa X1 WITH LEFT AND ANTERIOR LEAN THIS VISIT. PT PERFORMED STS FROM EOB TO FWW WITH MODaX2 WITH VC'S FOR SAFETY. PT PERFORMED STAND PIVOT TRANSFER TO RECLINER WITH MAXaX2 WITH VC'S FOR SAFETY. PT WAS WANTING TO SIT BEFORE GETTING TO RECLINER. PT PERFORMED STS TO RECLINER WITH MIN/MODa X2 WOTH VC'S FOR SAFETY. PT PERFORMED THE FOLLOWING SEATED EXERCISES 10X EACH WITH VC'S AND DEMO FOR EACH EXERCISES. EACH EXERCISES PERFORMED TO INCREASE LE STRENGTH, TO INCREASE MOBILITY, STABILITY AND ENDURANCE. LAQ, MARCH, HIP ADDUCTION AND HIP ABDUCTION WITH RESISTACNE FROM THIS CORNICE UPHOLSTERER. PT SITTING IN RECLINER WITH CALL LIGHT IN HAND, PHONE WITHIN REACH AND BODY ALARM ON. PT REPORTED NO OTHER NEEDS AT THIS TIME. PT SEEN 1:1 FOR 22MIN. JAQUELINE NICHOLS CORNICE UPHOLSTERER
--- NOTE | 2019-11-11 10:30 | NUR ---
OT NOTE Pt was seen this A.M. 1:1 for 25 minute OT session. Upon arrival pt was supine in bed. Pt identified by name and and had no complaints at this time other than being frustrated about his liquids having to be thickened. Pt transferred supine to sit EOB with modA for assist with advancing RLE and upper body. While sitting EOB pt's R AFO, shoe, and L shoe were donned with maxA. Then donned pt's gown with Bertha for assist around running IV to his RUE. Challenged pt's static sitting balance and pt presented with anterior and L lateral lean that required modA to correct. Educated pt on ways to self correct lean and pt could self correct however was only able to maintain for aprox 8-10 seconds before returning to anterior and L lateral lean. Sit to stand completed from bed level with modA X 2 and use of w/w for UE support. Challenged pt's static standing tolerance needed for increased I and endurance for functional transfers. Pt was able to tolerate aprox 30 seconds before sitting due to fatigue and weakness. Standing pivot completed from the EOB to the recliner with maxA X 2 and use of w/w for UE support. While sitting pt completed BUE towel exercises over all planes of motion for 1 x 10 to increase and restore maximum functional strength. Pt tolerated ther ex well. Pt was left sitting upright in the recliner with call light in hand, tray table in place, and body alarm activated for safety. Continue with rec D/C plan to SNF. GRABIEL Khan/Yocasta
--- NOTE | 2019-11-11 10:45 | NUR ---
SURGERY NURSE STATES THAT PT IS NOT TO HAVE EGD/COLO TODAY WITH DR LASSITER DUE TO POTASSIUM OF 2.4.
--- NOTE | 2019-11-11 11:22 | NUR ---
HOG TENDER ATTEMPTED TO CONTACT TO EXPLAIN THE PATIENT WOULD BE GETTING DISCHARGED HOME TODAY. SINCE THE PATIENT EXPRESSED THAT HE WANTED TO GO HOME. HOG TENDER REACHED HOME VOICEMAIL AND THE VOICEMAIL HUNG UP. IN THE EARLIER CONVERSATION THE PATIENTS DID SAY SHE WOULD BE HEADING TO THE POST OFFICE. SENIOR PARALEGAL IS AWARE.
--- NOTE | 2019-11-11 11:38 | NUR ---
SPEECH PATHOLOGY Patient was seen for treatment this am. He was seen during breakfast meal. Patient was again educated regarding reasoning for importance of adding thickener to his liquids as he reported dislike of it and refusal to drink. Patient was pleasant and appeared to understand the education provided. Clinician thickened his liquid to nectar consistency without complaint from patient, though he did not drink it during this encounter. He was able to feed himself breakfast. Coughing was noted with hot cereal, most likely due to the thin consistency of it at the bottom of the bowl. This was brought to patient's attention, and further education was provided regarding using strategies to avoid aspiration as it could lead to pneumonia and extended hospital stay. When patient is educated regarding recommendations, he has been pleasant and appears to understand but he needs frequent reeducation to ensure that he recalls the information given. Staff is aware of patient's recommendations and have provided education as well. Recommend continued therapy through length of stay to ensure safe tolerance of diet. LIANA MCGINNIS [employer]
[2019-11-11 12:00] VITALS: BP 100/67
--- NOTE | 2019-11-11 12:19 | NUR ---
PT GIVEN MORPHINE AT THIS TIME FOR C/O BACK PAIN. PT STATES THAT PAIN IS 9/10. WILL MONITOR FOR EFFECTIVENESS. CALL LIGHT IN REACH.
[2019-11-11] MEDS ORDERED: OLANZAPINE5 MG PO (12:20)
[2019-11-11] MEDS ORDERED: DOXYCYCLINE100 M3 PO (12:20)
[2019-11-11] MEDS ORDERED: TAMSULOSIN HCL0.4 MG PO (12:20)
--- NOTE | 2019-11-11 13:03 | NUR ---
OT NOTE Followed up with pt this P.M. to check AFO on RLE. Upon arrival pt was supine in bed with B shoes and R AFO still donned. At this time therapist doffed AFO and B shoes. No redness or irritation was noted. AFO and B shoes placed on window ledge with other belongings. Pt supine in bed with call light in hand, tray table in plac, and bed alarm activated for safety. LOC Khan
--- NOTE | 2019-11-11 13:19 | NUR ---
PT STATES THAT MORPHINE IS EFFECTIVE.
--- NOTE | 2019-11-11 13:31 | NUR ---
CALLED PT TO GO OVER DISCHARGE SUMMARY AND DISCHARGE INSTRUCTIONS. PT UPSET REGARDING NEW MEDICATIONS THAT PT IS STARTED ON AND STATES THAT SHE WOULD LIKE TO END OUR CONVERSATION. PT HANGS UP ON THIS NURSE. CASE MANAGEMENT NOTIFIED OF THIS. WILL HIGHLIGHT INFORMATION ON DISCHARGE PACKET FOR PT AND PT FOR WHEN PT IS DISCHARGED TO HOME.
--- NOTE | 2019-11-11 13:33 | NUR ---
case management faxed the discharge instruction list to [facility], educated them patient will need bloodwork drawn next week and also he was being discharged to home today
--- NOTE | 2019-11-11 13:36 | NUR ---
Patient is discharged to home via ambulance. [place] will transport at 2PM to take patient home. efficiency clerk notified.
--- NOTE | 2019-11-11 14:17 | NUR ---
Discharge instructions reviewed with patient/family. Patient receptive and verbalizes understanding. Follow-up care arranged. Written instructions given to patient/family. NANDO BUTLER
--- NOTE | 2019-11-11 14:38 | NUR ---
UROLOGIST INFORMATION PROVIDED TO PATIENT AND PATIENT ON DISCHARGE PACKET. PT STATES THAT HE DOES NOT HAVE A UROLOGIST, THEREFORE INFORMATION PROVIDED.
--- NOTE | 2019-11-11 14:41 | NUR ---
PT LEAVES FACILITY AT THIS TIME VIA EMS.
--- NOTE | 2019-11-12 07:36 | NUR ---
OCCUPATIONAL THERAPY CO-SIGN I approve of the Occupational Therapy notes written above. DEBBIE FRANK, OTR/L
--- NOTE | 2019-11-12 07:39 | NUR ---
PHYSICAL THERAPY CO-SIGN I approve of the Physical Therapy notes written above. Shruthi Marion PT
== END 2019-11-11 14:44 | disposition home or self-care (01) | DRG 177 ==
LOC: ED 07:52 → EDHOLD 09:50 → 5E 09:50
PROVIDERS: Emergency Medicine; Registered Nurse; ADMIT Student in an Organized Health Care Education/Training Program
PROC: BD1BYZZ Fluoroscopy of Mouth/Oropharynx using Other Contrast (ICD-10-PCS; principal; 2019-11-10)
DX: J69.0 Pneumonitis due to inhalation of food and vomit (principal); G93.41 Metabolic encephalopathy; I50.32 Chronic diastolic (congestive) heart failure; E44.0 Moderate protein-calorie malnutrition; N30.00 Acute cystitis without hematuria; R33.9 Retention of urine, unspecified; K21.9 Gastro-esophageal reflux disease without esophagitis; I25.10 Atherosclerotic heart disease of native coronary artery without angina pectoris; F39 Unspecified mood [affective] disorder; G31.84 Mild cognitive impairment of uncertain or unknown etiology; R13.10 Dysphagia, unspecified; M81.0 Age-related osteoporosis without current pathological fracture; B96.20 Unspecified Escherichia coli [E. coli] as the cause of diseases classified elsewhere; I11.0 Hypertensive heart disease with heart failure; Z87.442 Personal history of urinary calculi; Z86.73 Personal history of transient ischemic attack (TIA), and cerebral infarction without residual deficits; Z87.11 Personal history of peptic ulcer disease; I25.2 Old myocardial infarction; Z95.5 Presence of coronary angioplasty implant and graft; Z98.49 Cataract extraction status, unspecified eye; Z87.891 Personal history of nicotine dependence; Z79.82 Long term (current) use of aspirin; Z79.899 Other long term (current) drug therapy; Z68.30 Body mass index [BMI] 30.0-30.9, adult; Z82.49 Family history of ischemic heart disease and other diseases of the circulatory system; Z82.3 Family history of stroke; Z88.8 Allergy status to other drugs, medicaments and biological substances

== ENCOUNTER 2019-11-30 18:58 | Emergency (ER) | payer OTHER ==
[~2019-11-30] VITALS: Ht 170.1 cm; Wt 54.4 kg
[~2019-11-30 18:58] MED LIST changes: +DOXYCYCLINE100 M3 PO; +OLANZAPINE5 MG PO; +TAMSULOSIN HCL0.4 MG PO
[2019-11-30 19:02] VITALS: BP 134/84
== END 2019-11-30 20:36 | disposition home or self-care (01) ==
LOC: ED 18:58
DX: T83.098A Other mechanical complication of other urinary catheter, initial encounter (principal); Y92.89 Other specified places as the place of occurrence of the external cause

== ENCOUNTER 2020-01-20 12:02 | Emergency (ER) | payer OTHER ==
[~2020-01-20] VITALS: Ht 170.1 cm; Wt 90.7 kg
[2020-01-20 12:53] LABS: BASO # 0.1 10*3/uL (0.0-0.1); BASO % 0.9 % (0.0-1.0); EOS # 0.1 10*3/uL (0.0-0.4); EOS % 1.7 % (1.0-4.0); HEMATOCRIT 41.4 % (42.0-52.0); LYMPH # 1.3 10*3/uL (1.3-4.4); LYMPH % 21.7 % (27.0-41.0); MEAN CELL VOLUME 94.3 fl (80.0-94.0); MEAN CORPUSCULAR HGB 30.8 pg (27.0-31.0); MEAN CORPUSCULAR HGB CONC 32.6 g/dl (33.0-37.0); MEAN PLATELET VOLUME 10.1 fl (9.6-12.3); MONO # 0.6 10*3/uL (0.1-1.0); MONO % 10.4 % (3.0-9.0); NEUT # 3.8 10*3/uL (2.3-7.9); NEUT % 64.8 % (47.0-73.0); PLATELET COUNT AUTOMATED 177 10*3/uL (130-400); RED BLOOD COUNT 4.39 10*6/uL (4.50-5.90); RED CELL DISTRI WIDTH 13.6 % (0-14.5); WHITE BLOOD COUNT 5.9 10*3/uL (4.8-10.8)
[2020-01-20 13:03] LABS: ACT PARTIAL THROMBO TIME 26.2 SECONDS (20.0-32.1)
[2020-01-20 13:08] LABS: ALBUMIN 3.2 gm/dl (3.1-4.5); ALKALINE PHOSPHATASE 74 U/L (45-117); BUN 20 mg/dl (7-24); CHLORIDE 108 mmol/L (98-107); CREATININE 1.07 mg/dL (0.70-1.30); LIPASE 342 U/L (73-393); POTASSIUM 4.2 mmol/L (3.5-5.1); SGOT/AST 13 IU/L (3-35); SGPT/ALT 24 U/L (12-78); SODIUM 139 mmol/L (136-145); TOTAL PROTEIN 6.6 gm/dL (6.4-8.2); TROPONIN I < 0.015 ng/ml (<0.045)
[2020-01-20 14:26] LABS: BILIRUBIN Negative (Negative); BLOOD 1+ (Negative); CLARITY Clear (Clear); COLOR Yellow (Yellow); GLUCOSE Negative (Negative); KETONE Negative (Negative); LEUKO ESTERASE 2+ (Negative); NITRITE Positive (Negative); SPECIFIC GRAVITY 1.015 (1.001-1.030)
[2020-01-20 14:48] LABS: BACTERIA 4+; WBC 31-40 wbc/hpf (0-5)
[2020-01-20 19:03] VITALS: BP 154/100
== END 2020-01-20 19:08 | disposition short-term general hospital (02) ==
LOC: ED 12:02
PROVIDERS: Emergency Medicine
DX: I63.9 Cerebral infarction, unspecified (principal); N39.0 Urinary tract infection, site not specified; Z88.8 Allergy status to other drugs, medicaments and biological substances; Z87.891 Personal history of nicotine dependence

== ENCOUNTER → 2020-08-11 | Outpatient (CLI) | payer MEDICARE | END | disposition home or self-care (01) | LOC: RESCLI 09:23 | PROVIDERS: ATTEND Internal Medicine | DX: I11.0 Hypertensive heart disease with heart failure (principal); I50.9 Heart failure, unspecified; I25.10 Atherosclerotic heart disease of native coronary artery without angina pectoris; M81.0 Age-related osteoporosis without current pathological fracture; G62.9 Polyneuropathy, unspecified; R39.11 Hesitancy of micturition; G47.33 Obstructive sleep apnea (adult) (pediatric); R53.1 Weakness; E78.2 Mixed hyperlipidemia; F32.9 Major depressive disorder, single episode, unspecified; I25.2 Old myocardial infarction; E53.8 Deficiency of other specified B group vitamins; Z79.82 Long term (current) use of aspirin; Z95.1 Presence of aortocoronary bypass graft; Z86.73 Personal history of transient ischemic attack (TIA), and cerebral infarction without residual deficits; Z98.890 Other specified postprocedural states; Z88.8 Allergy status to other drugs, medicaments and biological substances ==

== ENCOUNTER 2020-08-28 21:09 | Emergency (ER) | payer MEDICARE ==
[~2020-08-28] VITALS: Ht 170.1 cm; Wt 97.5 kg
[2020-08-28 21:11] VITALS: BP 158/87
[2020-08-28] MEDS ORDERED: VALTREX1000 MG PO (22:47)
[2020-08-28] MEDS ORDERED: NEURONTIN300 MG PO (23:05)
== END 2020-08-28 23:00 | disposition home or self-care (01) ==
LOC: ED 21:09
DX: B02.29 Other postherpetic nervous system involvement (principal); Z88.8 Allergy status to other drugs, medicaments and biological substances; Z79.899 Other long term (current) drug therapy; Z90.49 Acquired absence of other specified parts of digestive tract; Z98.890 Other specified postprocedural states

== ENCOUNTER 2020-12-13 19:42 | Emergency (ER) | payer MEDICARE ==
[~2020-12-13 19:42] MED LIST changes: +NEURONTIN300 MG PO; +VALTREX1000 MG PO
== END 2020-12-13 20:30 | disposition left against medical advice (07) ==
LOC: ED 19:42
DX: B02.9 Zoster without complications (principal); Z53.21 Procedure and treatment not carried out due to patient leaving prior to being seen by health care provider

== ENCOUNTER 2021-03-05 05:31 | Emergency (ER) | payer OTHER, MEDICARE ==
[~2021-03-05] VITALS: Ht 172.7 cm; Wt 90.7 kg
[2021-03-05 06:02] VITALS: BP 149/82
[2021-03-05 06:03] LABS: BILIRUBIN Negative (Negative); BLOOD 3+ (Negative); CLARITY Turbid (Clear); COLOR Red (Yellow); GLUCOSE Negative (Negative); KETONE Negative (Negative); NITRITE Positive (Negative); SPECIFIC GRAVITY 1.015 (1.001-1.030)
[2021-03-05 06:17] LABS: LEUKO ESTERASE 2+ (Negative); RBC TNTC rbc/hpf (0-2)
[2021-03-05 06:52] LABS: BASO # 0.1 10*3/uL (0.0-0.1); BASO % 0.6 % (0.0-1.0); EOS # 0.2 10*3/uL (0.0-0.4); HEMATOCRIT 44.3 % (42.0-52.0); LYMPH # 1.3 10*3/uL (1.3-4.4); MEAN CELL VOLUME 96.3 fl (80.0-94.0); MEAN CORPUSCULAR HGB 32.2 pg (27.0-31.0); MEAN CORPUSCULAR HGB CONC 33.4 g/dl (33.0-37.0); MEAN PLATELET VOLUME 10.3 fl (9.6-12.3); MONO # 0.8 10*3/uL (0.1-1.0); MONO % 9.7 % (3.0-9.0); NEUT # 6.2 10*3/uL (2.3-7.9); NEUT % 72.2 % (47.0-73.0); PLATELET COUNT AUTOMATED 139 10*3/uL (130-400); RED CELL DISTRI WIDTH 13.8 % (0-14.5); WHITE BLOOD COUNT 8.6 10*3/uL (4.8-10.8)
[2021-03-05 07:19] LABS: ALBUMIN 3.5 gm/dl (3.1-4.5); ALKALINE PHOSPHATASE 71 U/L (45-117); BUN 18 mg/dl (7-24); CHLORIDE 108 mmol/L (98-107); CREATININE 0.98 mg/dL (0.70-1.30); POTASSIUM 4.1 mmol/L (3.5-5.1); SGOT/AST 15 IU/L (3-35); SGPT/ALT 28 U/L (12-78); SODIUM 140 mmol/L (136-145); TOTAL PROTEIN 6.8 gm/dL (6.4-8.2)
[2021-03-05] MEDS ORDERED: HYDROCODONE-AC1 EAC1 PO (08:05)
[2021-03-05] MEDS ORDERED: CEFUROXIME AXE500 MG PO (08:05)
[2021-03-05] MEDS ORDERED: PREDNISONE10 MG PO (08:05)
[2021-03-05] MEDS ORDERED: FLOMAX0.4 MG PO (08:05)
== END 2021-03-05 11:34 | disposition home or self-care (01) ==
LOC: ED 05:31
PROVIDERS: Emergency Medicine
DX: N20.0 Calculus of kidney (principal); N39.0 Urinary tract infection, site not specified; M54.31 Sciatica, right side; I25.10 Atherosclerotic heart disease of native coronary artery without angina pectoris; K21.9 Gastro-esophageal reflux disease without esophagitis; Z86.73 Personal history of transient ischemic attack (TIA), and cerebral infarction without residual deficits; I11.0 Hypertensive heart disease with heart failure; I50.9 Heart failure, unspecified; Z88.6 Allergy status to analgesic agent

== ENCOUNTER 2021-04-11 13:37 | Emergency (ER) | payer MEDICARE ==
[~2021-04-11 13:37] MED LIST changes: +CEFUROXIME AXE500 MG PO; +HYDROCODONE-AC1 EAC1 PO; +PREDNISONE10 MG PO
[2021-04-11 13:57] VITALS: BP 136/107
[2021-04-11 14:30] VITALS: BP 126/97
[2021-04-11 14:50] LABS: BASO % 0.6 % (0.0-1.0); EOS # 0.2 10*3/uL (0.0-0.4); EOS % 3.1 % (1.0-4.0); HEMATOCRIT 41.2 % (42.0-52.0); LYMPH % 16.3 % (27.0-41.0); MEAN CELL VOLUME 95.6 fl (80.0-94.0); MEAN CORPUSCULAR HGB 32.3 pg (27.0-31.0); MEAN CORPUSCULAR HGB CONC 33.7 g/dl (33.0-37.0); MEAN PLATELET VOLUME 9.5 fl (9.6-12.3); MONO % 15.5 % (3.0-9.0); NEUT # 3.9 10*3/uL (2.3-7.9); NEUT % 62.4 % (47.0-73.0); PLATELET COUNT AUTOMATED 240 10*3/uL (130-400); RED BLOOD COUNT 4.31 10*6/uL (4.50-5.90); RED CELL DISTRI WIDTH 13.7 % (0-14.5); WHITE BLOOD COUNT 6.2 10*3/uL (4.8-10.8)
[2021-04-11 15:08] LABS: ALKALINE PHOSPHATASE 93 U/L (45-117); BUN 19 mg/dl (7-24); CHLORIDE 104 mmol/L (98-107); CREATININE 1.02 mg/dL (0.70-1.30); POTASSIUM 4.1 mmol/L (3.5-5.1); SGOT/AST 19 IU/L (3-35); SGPT/ALT 26 U/L (12-78); SODIUM 137 mmol/L (136-145); TOTAL PROTEIN 7.1 gm/dL (6.4-8.2)
[2021-04-11 16:20] LABS: BILIRUBIN Negative (Negative); BLOOD Trace-Intact (Negative); CLARITY Cloudy (Clear); COLOR Yellow (Yellow); GLUCOSE Negative (Negative); KETONE Trace (Negative); LEUKO ESTERASE 2+ (Negative); NITRITE Positive (Negative); UROBILINOGEN 0.2 E.U./dl (0.0-1.0)
[2021-04-11 16:48] LABS: BACTERIA 4+; EPITHELIAL CELLS 0-2; MUCOUS TRACE; RBC 0-2 rbc/hpf (0-2); WBC 31-40 wbc/hpf (0-5)
== END 2021-04-11 17:30 | disposition left against medical advice (07) ==
LOC: ED 13:37 → EDHOLD 16:55 → ED 17:30
PROVIDERS: Emergency Medicine
DX: J18.8 Other pneumonia, unspecified organism (principal); Z20.822 Contact with and (suspected) exposure to COVID-19; Z88.6 Allergy status to analgesic agent; I25.10 Atherosclerotic heart disease of native coronary artery without angina pectoris; Z86.73 Personal history of transient ischemic attack (TIA), and cerebral infarction without residual deficits; K21.9 Gastro-esophageal reflux disease without esophagitis; I50.9 Heart failure, unspecified; I11.0 Hypertensive heart disease with heart failure

== ENCOUNTER 2023-07-20 09:02 | Emergency (ER) | payer MEDICARE, OTHER ==
[~2023-07-20] VITALS: Ht 170.1 cm; Wt 122.5 kg
[2023-07-20] MEDS ORDERED: LIPITOR40 MG PO (09:19)
[2023-07-20] MEDS ORDERED: COREG12.5 M1 PO (09:19)
[2023-07-20] MEDS ORDERED: CYCLOBENZAPRINE10 MG PO (09:20)
[2023-07-20] MEDS ORDERED: PLAVIX75 M1 PO (09:20)
[2023-07-20] MEDS ORDERED: LOSARTAN POTAS100 M1 PO (09:21)
[2023-07-20] MEDS ORDERED: D3 DOTS50 MCG PO (09:22)
[2023-07-20] MEDS ORDERED: VITAMIN B-12100 MCG PO (09:22)
[2023-07-20] MEDS ORDERED: BENADRYL ALLERG25 M5 PO (09:24)
[2023-07-20] MEDS ORDERED: 8 HOUR PAIN RE650 M1 PO (09:24)
[2023-07-20] MEDS ORDERED: VALACYCLOVIR500 M1 PO (09:25)
[2023-07-20] MEDS ORDERED: MAGNESIUM400 MG PO (09:25)
[2023-07-20] MEDS ORDERED: CRANBERRY PLUS1 EAC1 PO (09:28)
[2023-07-20] MEDS ORDERED: MOXIFLOXACIN3 ML OP (09:29)
[2023-07-20] MEDS ORDERED: PREDNISOLONE ACE5 M5 OP (09:30)
[2023-07-20] MEDS ORDERED: Enoxaparin Sodium 100 MG/ML SYR SC ONE (09:40)
[2023-07-20] MEDS ORDERED: Diltiazem Hydrochloride 25 MG/5 ML VIAL IV ONE (09:40)
[2023-07-20] MEDS ORDERED: Enoxaparin Sodium 120 MG/0.8 ML SYR SC ONE (09:45)
[2023-07-20 10:16] LABS: BASO # 0.1 10*3/uL (0.0-0.1); BASO % 0.9 % (0.0-1.0); EOS # 0.1 10*3/uL (0.0-0.4); EOS % 0.9 % (1.0-4.0); MEAN CORPUSCULAR HGB 33.1 pg (27.0-31.0); RED BLOOD COUNT 3.93 10*6/uL (4.50-5.90)
[2023-07-20 10:21] LABS: LYMPH # 1.2 10*3/uL (1.3-4.4); LYMPH % 17.6 % (27.0-41.0); MEAN CELL VOLUME 101.8 fl (80.0-94.0); MEAN CORPUSCULAR HGB CONC 32.5 g/dl (33.0-37.0); MEAN PLATELET VOLUME 11.6 fl (9.6-12.3); MONO # 0.5 10*3/uL (0.1-1.0); MONO % 7.7 % (3.0-9.0); NEUT # 4.9 10*3/uL (2.3-7.9); NEUT % 71.9 % (47.0-73.0); PLATELET COUNT AUTOMATED 129 10*3/uL (130-400); RED CELL DISTRI WIDTH 14.7 % (0-14.5); WHITE BLOOD COUNT 6.8 10*3/uL (4.8-10.8)
[2023-07-20 10:34] LABS: BUN 17 mg/dl (9-23); CHLORIDE 106 mmol/L (98-107)
[2023-07-20] MEDS ORDERED: FUROSEMIDE 40 MG/4 ML VIAL IV ONE (10:45)
[2023-07-20] MEDS ORDERED: AZITHROMYCIN 250 ML IV ONE (11:50)
[2023-07-20] MEDS ORDERED: Ceftriaxone Sodium 1 GM/10 ML SYR IV ONE (11:50)
[2023-07-20] MEDS ORDERED: Metoprolol Tartrate 5 MG/5 ML VIAL IV ONE (12:35)
[2023-07-20] MEDS ORDERED: Acetaminophen/Hydrocodone 5 MG/325 MG TABLET PO ONE (12:40)
[2023-07-20 12:46] VITALS: BP 122/89
[2023-07-20] MEDS ORDERED: MORPHINE Sulfate 2 MG/ML SYR IV ONE (13:15)
== END 2023-07-20 13:21 | disposition short-term general hospital (02) ==
LOC: ED 09:02
PROVIDERS: Internal Medicine
DX: I48.20 Chronic atrial fibrillation, unspecified (principal); R65.20 Severe sepsis without septic shock; I11.0 Hypertensive heart disease with heart failure; I50.9 Heart failure, unspecified; J18.9 Pneumonia, unspecified organism; I25.2 Old myocardial infarction; Z88.8 Allergy status to other drugs, medicaments and biological substances; Z90.49 Acquired absence of other specified parts of digestive tract; Z90.89 Acquired absence of other organs; Z98.890 Other specified postprocedural states; Z87.891 Personal history of nicotine dependence